=== PATIENT | female | born 1975 | race Caucasian/White ===

== ENCOUNTER → 2019-06-05 | Outpatient (CLI) | payer BC | LOC: MC.RAD 07:30 | DX: Z98.890 Other specified postprocedural states (principal) | CPT/HCPCS: G0279 ==

== ENCOUNTER → 2020-02-26 | Outpatient (CLI) | payer BC | LOC: COL.RAD 08:15 | DX: M50.222 Other cervical disc displacement at C5-C6 level (principal) ==

== ENCOUNTER → 2020-03-13 | Outpatient (CLI) | payer BC | LOC: COL.LAB 08:55 | DX: Z20.828 Contact with and (suspected) exposure to other viral communicable diseases (principal) ==

== ENCOUNTER → 2021-05-19 | Outpatient (CLI) | payer BC | LOC: MC.RAD 07:30 | DX: Z12.31 Encounter for screening mammogram for malignant neoplasm of breast (principal) ==

== ENCOUNTER → 2022-04-01 | Outpatient (CLI) | payer BC | LOC: COL.RAD 11:47 | DX: M50.222 Other cervical disc displacement at C5-C6 level (principal) | CPT/HCPCS: A9575 ==

== ENCOUNTER → 2022-11-02 | Outpatient (CLI) | payer BC | LOC: MHCPAIN 13:08 | DX: M47.812 Spondylosis without myelopathy or radiculopathy, cervical region (principal); M54.12 Radiculopathy, cervical region | CPT/HCPCS: J0461; J1100; J2250; J3010; Q9967 ==